=== PATIENT | male | born 1975 | race Caucasian/White ===

== ENCOUNTER 2018-11-14 15:10 | Emergency (ER) | payer SELFPAY ==
--- NOTE | 2018-11-14 16:10 | RAD ---
LEFT HAND 3 VIEWS: HISTORY: Injury, smashed hand with a wrench with laceration. FINDINGS: There is a very markedly comminuted fracture involving the distal phalanx of the index finger with so ft tissue swelling with minimal dorsal angulation. IMPRESSION: Markedly comminuted mildly dorsally angulated fracture of distal phalanx index finger with soft tissu e swelling. POS: [facility]
[2018-11-14] MEDS ORDERED: Lidocaine 1% (PF) 30 ML VIAL ONE (16:40)
[2018-11-14] MEDS ORDERED: Adacel (T-DAP) 0.5 ML SYRINGE ONE (16:40)
== END 2018-11-14 18:19 | disposition home or self-care (01) ==
LOC: ERS 15:10
DX: S62.631A Displaced fracture of distal phalanx of left index finger, initial encounter for closed fracture (principal); S61.211A Laceration without foreign body of left index finger without damage to nail, initial encounter; F17.210 Nicotine dependence, cigarettes, uncomplicated; Z79.899 Other long term (current) drug therapy; W31.9XXA Contact with unspecified machinery, initial encounter
CPT/HCPCS: 12001; 90471; 90715; J2001